=== PATIENT | female | born 1995 | race Caucasian/White ===

== ENCOUNTER 2021-03-22 06:18 | Day surgery (SDC) | payer BC ==
[~2021-03-22] VITALS: Ht 172.7 cm; Wt 81.7 kg
[2021-03-22] MEDS ORDERED: ALLEGRA ALLERG180 MG PO (06:37)
--- NOTE | 2021-03-22 12:31 | NUR ---
03/22/21 1231 Antonieta Woodruff 1225: PT ARRIVES TO PACU FOR RECOVERY VIA STRETCHER. REACTIVE TO TACTILE STIMULI BUT UNABLE TO FOLLOW COMMANDS. VSS, RESP EVEN AND UNLABORED. OPA IN PLACE. O2 SAT STABLE >98% ON 8L VIA FACEMASK 1227: PT WAKES AND BEGINS TO GRAB AT FACE. OPENS MOUTH ON COMMAND AND OPA REMOVED. 1228: CONTS TO REACH FOR FACE. OXYGEN TURNED OFF AND MASK REMOVED. PT MAINTAINSO2 SAT >98% ON RA. 1230: VS REMAIN STABLE. PT ANSWERS QUESTIONS APPROPRIATELY. DENIES PAIN ANDNAUSEA. RESP EVEN AND UNLABORED. O2 SAT >98% ON RA
--- NOTE | 2021-03-22 13:16 | NUR ---
REPORT RECEIVED FROM CHARGE NURSE AND PT CARE RESUMED. PT. IS ALERT AND ORIENTED. SHE REPORTS PAIN IS TOLERABLE AND MILD. LAP SITE DRESSINGS X3 ARE CDI. HR IS 107. PT IS TOLERATING JELLO AND SIPS OF WATER. BOWEL TONES HYPOACTIVE AND LUNGS CLEAR THROUGHOUT. DISCUSSED GOALS TO DISCHARGE, SAFETY AND PAIN MANAGEMENT. PT LEFT RESTING WITH CALL LIGHT IN REACH.
--- NOTE | 2021-03-22 13:22 | HP ---
[facility] [address] [place] [place], [place] [address] Signed ADMISSION DATE: 03/22/2021 CHIEF COMPLAINT: Left pelvic pain. HISTORY: The patient is a 25-year-old, G0, unknown LMP with Mirena IUD inserted on 01/07/2021 with bleeding off and on since then, complained of sudden onset of left-sided pelvic pain about 05:00 a.m. this morning. This was uilnzyrq-dy-smqdbi, and the patient also began having nausea and vomiting. She denies any fever or dysuria, had no previous symptoms like this. Because of the pain, she came to the emergency room and was found to have probable torsion of the left ovary. PAST MEDICAL HISTORY: Medical: Allergies. Surgery: None. CURRENT MEDICATIONS: Rosa and Advil. ALLERGIES: Amoxicillin and hives. SOCIAL HISTORY: Occasional alcohol. No smoking. No drinking. REVIEW OF SYSTEMS: Unremarkable. PHYSICAL EXAMINATION: GENERAL: The patient in mild distress with intermittent increases in pelvic pain. She is afebrile. VITAL SIGNS: Stable. HEART: Regular rate and rhythm. LUNGS: Clear. ABDOMEN: Soft, nondistended, tender in the left lower quadrant. PELVIC: Deferred. EXTREMITIES: Full range of motion. RADIOGRAPHIC DATA: Pelvic ultrasound showed Electronically Signed By: SHOAIB MIXON MD 03/22/21 1322 PATIENT NAME: JENNI GILLIAM HISTORY AND PHYSICAL DATE OF : [birth year] REPORT #: [id number] PHYSICIAN: SHOAIB MIXON MD PCP: BRANDEN AWAN NP REPORT IS CONFIDENTIAL AND NOT TO BE RELEASED WITHOUT AUTHORIZATION [facility] [address] [place], [place] [address] Signed normal uterus. Left ovary is enlarged at 7 x 8.2 x 11.9 cm with two complex, probably hemorrhagic cysts present, 64 x 56 x 67 mm and 59 x 53 x 66 mm. There is no vascularity noted within the ovary and it was thought to be probable torsion of the left ovary. LABORATORY DATA: WBCs 11.7 and H and H of 13.7 and 41.0. Quantitative hCG less than 0.1. IMPRESSION: Probable torsion of the left ovary. PLAN: The patient has been n.p.o. for over 12 hours except for one sip of coffee. I have discussed the probable diagnosis and recommended diagnostic laparoscopy with probable detorsion of the ovary and possible drainage or excision of cysts. I discussed the possibility of needing removal of the left tube and/or ovary. We discussed the risks including bleeding, infection, and injury to bowel, bladder, and ureter. We discussed the possibility of torsion returning after detorsion. The patient would like to proceed with surgery, so the OR crew and Anesthesia were called. 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 The patient signed consent and all questions were answered. Shoaib Mixon MD MJB/JANETL /[id number] Copies: ~ Electronically Signed By: SHOAIB MIXON MD 03/22/21 1322 PATIENT NAME: JENNI GILLIAM HISTORY AND PHYSICAL DATE OF : [birth year] REPORT #: [id number] PHYSICIAN: SHOAIB MIXON MD PCP: BRANDEN AWAN NP REPORT IS CONFIDENTIAL AND NOT TO BE RELEASED WITHOUT AUTHORIZATION
[2021-03-22] MEDS ORDERED: ADVIL200 M1 PO (14:02)
[2021-03-22] MEDS ORDERED: NASACORT10.8 ML NAS (14:08)
--- NOTE | 2021-03-22 14:08 | NUR ---
MED REC COMPLETE
--- NOTE | 2021-03-22 14:15 | NUR ---
MD UPDATED ABOUT PT. STATUS AND MEETING GOALS FOR DISCHARGE.
--- NOTE | 2021-03-22 14:46 | NUR ---
ALL DISCHARGE INSTRUCTIONS REVIEWED WITH PT AND QUESTIONS ANSWERED. VITALS STABLE, VOIDING WELL, AMBULATING, AND TOLERATING FLUIDS AND FOOD WITHOUT NAUSEA. IV REMOVED WITH CATH. INTACT. PT. LEFT WITH ALL BELONGINGS VIA WHEELCHAIR WITH FIFLOYD AND PHYSICIAN SCRIBE.
--- NOTE | 2021-03-26 07:06 | OR ---
[facility] [address] [place] [address] Signed DATE OF OPERATION: 03/22/2021 SURGEON: Shoaib Mixon MD Patient of Dr. Mixon. PREOPERATIVE DIAGNOSES: Pelvic pain, adnexal mass, probable torsion of left ovary. POSTOPERATIVE DIAGNOSES: Large left hemorrhagic ovarian cyst and torsion of the left ovary. PROCEDURE: Laparoscopic left ovarian cystectomy and detorsion of the left ovary. PAPER TWISTER TENDER: Loli Wilson MD. ANESTHESIA: General. ESTIMATED BLOOD LOSS: 50 mL plus additional 200 mL of old blood and clots within the pelvis prior to the surgery. SPECIMEN: Hemorrhagic left ovarian cyst. DRAINS: None. PACKING: None. FINDINGS: Cervix thick, closed. Cervix with IUD string seen. Uterus normal size and shape. There was moderate amount of dark blood and clots within the pelvis. The uterus was normal size and shape. The anterior cul-de-sac free of any adhesions. Posterior cul-de-sac free of any adhesions, but was filled with dark blood. The left fallopian tube was swollen and edematous. The left ovary was enlarged with approximately 10 cm Electronically Signed By: SHOAIB MIXON MD 03/26/21 0706 PATIENT NAME: JENNI GILLIAM OPERATIVE REPORT DATE OF : [birth year] REPORT #: [id number] PHYSICIAN: SHOIAB MIXON MD PCP: SHIRA CORDOVA CANDLE MOLDER HAND REPORT IS CONFIDENTIAL AND NOT TO BE RELEASED WITHOUT AUTHORIZATION [facility] [address] [place], [place] [address] Signed left ovarian hemorrhagic cyst and also with torsion of the ovary. The right tube and ovary were normal. No other masses or adhesions were seen. COMPLICATIONS: None. DESCRIPTION OF PROCEDURE: The patient was brought into the operating room, placed in supine position, and after adequate general anesthesia was obtained, the patient was placed in dorsal lithotomy position, prepped and draped in usual sterile fashion. A Mirza catheter was placed in the bladder and a weighted speculum was placed in the vagina. Cervix was observed and a sponge stick was placed in the vagina and the weighted speculum removed. Attention was then drawn to the abdomen. A small infraumbilical skin incision was made with a scalpel after injecting the area with 0.5% Marcaine with epinephrine. Subcutaneous tissue was dissected with Metzenbaum scissors. The hemostats used to grasp the fascia, which was then elevated, nicked with Metzenbaum scissors and extended in transverse fashion using Metzenbaum scissors. Abdominal musculature and peritoneum were bluntly and sharply opened into the pelvis. Retention stitches of 0 Vicryl suture were placed above and below the incision. An S retractor was placed in the incision. The Hanna cannula and sleeve then entered the abdomen under direct visualization and then the S retractor removed. The balloon was filled with air and the upper sleeve slid down and tightened in place. The retention stitches were attached to the upper sleeve. The trocar removed and the laparoscope with video attachment entered the abdomen under direct visualization. The abdomen was insufflated with carbon dioxide. The above findings were noted. On the left side just below the level of the umbilicus and approximately 10 cm lateral to the midline, the abdominal wall was transilluminated to help avoid any vessels and then skin nicked with a scalpel after injecting the area with 0.5% Marcaine with epinephrine. A bladed 5-mm trocar and sleeve entered the abdomen under direct visualization. The trocar was removed and blunt grasper inserted. The same procedure was carried out on the right side and a second blunt grasper inserted. The above findings were noted and confirmed. The ovary was detorsed and was examined to see if there appeared to be any viable ovary or tube. The tube was quite edematous, but did not appear necrotic. The hemorrhagic ovarian cyst was very friable and large amount of clots present. The ovarian cyst was opened and suction irrigation used to try clean out the clots. At this point, it was decided a larger instrument was needed to help with removing the cysts. On the right side the balloon was deflated, the trocar removed and a Veress needle with expandable sleeve placed through the same incision and fascial Electronically Signed By: SHOAIB MIXON MD 03/26/21 0706 PATIENT NAME: JENNI GILLIAM OPERATIVE REPORT DATE OF : [birth year] REPORT #: [id number] PHYSICIAN: SHOAIB MIXON MD PCP: SHIRA CORDOVA NP REPORT IS CONFIDENTIAL AND NOT TO BE RELEASED WITHOUT AUTHORIZATION [facility] [address] [place], [place] [address] Signed incision. The Veress needle was removed and expandable trocar was placed through the expandable sleeve. The trocar was removed and through this opening the 10 mm Spoonbill forceps could be used. These were used to grasp pieces of the ovary and clot and remove them individually. This was carried out using the LigaSure bipolar forceps to cauterize the edematous portion of the hemorrhagic cyst and the individual pieces placed in the Spoonbill and removed. This was carefully continued, also irrigating and suctioning and picking up any loose pieces of the cyst until reaching viable tissue, which was starting to bleed. When all of the hemorrhagic cyst was removed and the remaining portion of the ovary appeared mostly normal, the raw surfaces were cauterized with monopolar spatula tip and Maryland tip to control any slight bleeding. The entire pelvis was then irrigated, thoroughly suctioned, examined, any clots or other portions of ovary were removed using Spoonbill forceps. When good hemostasis was obtained, the raw ovarian surface was sprayed with Tisseel for further hemostasis and the entire pelvis again carefully examined and noted to have good hemostasis. The left tube was still edematous. The ovary appeared viable and again good hemostasis was noted. The right tube and ovary were both normal. So, at this point, the procedure was terminated. The gas allowed to escape. All sleeves removed and the infraumbilical fascial incision closed using running stitch of 0 Vicryl suture. The 2 retention stitches were tied together for further support. The 3 skin incisions were closed using subcuticular stitches of 3-0 Vicryl suture. The Mirza catheter was removed and the sponge stick removed from the vagina. The patient tolerated the procedure well, went to recovery room in good condition. Sponge, needle, and instrument count correct at the end of the procedure. The portions of the hemorrhagic ovarian cyst were sent to Pathology for identification. MD ERICA Venegas/SANTANA /[id number] cc: Shira Cordova NP Copies: CORDOVA,SHIRA L CANDLE MOLDER HAND Electronically Signed By: SHOAIB MIXON MD 03/26/21 0706 PATIENT NAME: JENNI GILLIAM OPERATIVE REPORT DATE OF : [birth year] REPORT #: [id number] PHYSICIAN: SHOAIB MIXON MD PCP: SHIRA CORDOVA NP REPORT IS CONFIDENTIAL AND NOT TO BE RELEASED WITHOUT AUTHORIZATION [address] [address] Signed ~ Electronically Signed By: SHOAIB MIXON MD 03/26/21 0706 PATIENT NAME: JENNI GILLIAM OPERATIVE REPORT DATE OF : [birth year] REPORT #: [id number] PHYSICIAN: SHOAIB MIXON MD PCP: SHIRA CORDOVA NP REPORT IS CONFIDENTIAL AND NOT TO BE RELEASED WITHOUT AUTHORIZATION
--- NOTE | 2021-03-27 14:18 | PATH ---
[facility] [address] [place], [place] [address] Signed SPECIMEN(S): A LEFT OVARIAN CYST SPECIMEN SOURCE: A. LEFT OVARIAN CYST CLINICAL HISTORY: Pre: Abdominal pain/vomiting, possible torsed ovary. Post: Diagnostic laparoscopy, hemorrhagic ovarian cystectomy and detorsion. FINAL PATHOLOGIC DIAGNOSIS: Ovarian cyst, left, cystectomy: - Fragments of hemorrhagic ovarian tissue with cystic follicles. - No evidence of malignancy. COMMENT: The histologic changes in the ovarian tissue are compatible with the history of ovarian torsion. NAL:cml:C2NR MICROSCOPIC EXAMINATION: Histologic sections of all submitted blocks are examined by light microscopy. These findings, together with the gross examination, support the pathologic diagnosis. GROSS DESCRIPTION: The specimen, labeled "MM," and designated on the requisition "hemorrhagic left ovarian cyst," is received in formalin and consists of multiple fragmented pieces of red-brown soft tissue and clot (7.0 x 6.1 x 2.6 cm in aggregate). Chain Maker Loom Control sections are submitted in cassettes (A1-A3). AC (under the direct supervision of a pathologist) The Gross Description was prepared using a voice recognition system. The report was reviewed for accuracy; however, sound-alike word errors, addition and/or deletions may occur. If there is any question about this report, please contact Client Services. PERFORMING LABORATORY: The technical component was performed by [facility], [address] [place] [id number] ([employer]: Jud Iniguez MD; CLIA# [id number]). [facility], [address] [address] (CLIA# PATIENT NAME: JENNI GILLIAM PATHOLOGY DATE OF : [birth year] REPORT #: [id number] PHYSICIAN: [facility] PCP: BRANDEN AWAN NP REPORT IS CONFIDENTIAL AND NOT TO BE RELEASED WITHOUT AUTHORIZATION [address] [address] Signed [id number]). Diagnostician: Jacinda Briceno MD Pathologist Electronically Signed 03/27/2021 Copies: ~ PATIENT NAME: JENNI GILLIAM PATHOLOGY DATE OF : [birth year] REPORT #: [id number] PHYSICIAN: [facility] PCP: BRANDEN AWAN NP REPORT IS CONFIDENTIAL AND NOT TO BE RELEASED WITHOUT AUTHORIZATION
== END 2021-03-22 14:40 | disposition home or self-care (01) ==
LOC: ED 06:18 → MS 09:54 → DS 09:54 → MS 09:55 → DS 14:40
PROVIDERS: ATTEND General Practice
PROC: 0UB14ZZ Excision of Left Ovary, Percutaneous Endoscopic Approach (ICD-10-PCS; 2021-03-22)
PROC: 0US14ZZ Reposition Left Ovary, Percutaneous Endoscopic Approach (ICD-10-PCS; principal; 2021-03-22 10:00)
DX: N83.512 Torsion of left ovary and ovarian pedicle (principal); N83.202 Unspecified ovarian cyst, left side; E28.2 Polycystic ovarian syndrome; N83.8 Other noninflammatory disorders of ovary, fallopian tube and broad ligament; Z20.822 Contact with and (suspected) exposure to COVID-19; Z97.5 Presence of (intrauterine) contraceptive device; Z88.0 Allergy status to penicillin
CPT/HCPCS: 00840; 76830; 76856; 80053; 81001; 83690; 84702; 84703; 85025; 96374; 96375; 96376; 99285-25; C9803; J0131; J0330; J1100; J1170; J1885; J2001; J2250; J2270; J2405; J2704; J3010; J7030; J7121; U0003

== ENCOUNTER 2023-08-16 07:40 | Inpatient (IN) | payer OTHER ==
[~2023-08-16] VITALS: Ht 172.7 cm; Wt 105.7 kg
[~2023-08-16 07:40] MED LIST: ADVIL200 M1 PO; ALLEGRA ALLERG180 MG PO; NASACORT10.8 ML NAS
--- NOTE | 2023-08-16 09:04 | PR ---
[facility] [address] [facility] [place], [place] [address] Signed Progress Notes IP Datetime Report Generated by CPN: 08/16/2023 09:04 PROGRESS NOTES: [id number] Impression: Reassuring Heart Rate Procedures: Artificial ROM Plan: Continue Present Management VITAL SIGNS: [id number] Vital Signs: Reviewed; Within Normal Limits EXAM: [id number] Dilatation: 5.0 Effacement: 90 Station: -2 MEMBRANES: [id number] Comments: Still pretty comfortable. Will continue with close observation. FETUS A: [id number] FHR Baseline: 120 Variability: Moderate 6-25bpm Accelerations: 15X15 Decelerations: None FHR Category: Category I Presentation: Vertex FETUS B: [id number] Signing Physician: Loli Wilson MD Copies: ~ *Electronically Signed* 08/16/23903 LOLI WILSON MD PATIENT NAME: JENNI CHANG PROGRESS NOTE DATE OF : [birth year] PHYSICIAN: LOLI WILSON MD RPT #: [id number] REPORT IS CONFIDENTIAL AND NOT TO BE RELEASED WITHOUT AUTHORIZATION
[2023-08-16 09:05] LABS: HEMATOCRIT 36.7 % (35.0-50.0); HEMOGLOBIN 11.9 g/dL (12.0-18.0); MCH 26.4 (27-36); MCHC 32.5 g/dl (30-36); MCV 81.2 fl (81-99); RBC 4.52 M/ul (4.3-5.7); RDW 15.1 (10.5-15.0)
[2023-08-16 09:55] LABS: ABO B; ANTIBODY SCREEN NEGATIVE; RH POSITIVE
[2023-08-16 09:59] LABS: AMPHETAMINES, URINE NEGATIVE (NEGATIVE); BARBITURATES, URINE NEGATIVE (NEGATIVE); BENZODIAZEPINE, URINE NEGATIVE (NEGATIVE); BUPRENORPHINE, URINE NEGATIVE (NEGATIVE); CANNABINOID, URINE NEGATIVE (NEGATIVE); COCAINE, URINE NEGATIVE (NEGATIVE); ECSTASY, URINE POSITIVE (NEGATIVE); FENTANYL, URINE NEGATIVE (NEGATIVE); METHADONE, URINE NEGATIVE (NEGATIVE); OPIATES, URINE NEGATIVE (NEGATIVE); OXYCODONE, URINE NEGATIVE (NEGATIVE); PHENCYCLIDINE, URINE NEGATIVE (NEGATIVE)
[2023-08-17 05:24] LABS: HEMOGLOBIN 8.8 g/dL (12.0-18.0); MCH 26.8 (27-36); MCHC 32.6 g/dl (30-36); MCV 82.4 fl (81-99); RBC 3.28 M/ul (4.3-5.7); RDW 15.2 (10.5-15.0)
--- NOTE | 2023-08-17 09:49 | PR ---
[facility] [address] [facility] [place], [place] [address] Signed PP Progress Notes Datetime Report Generated by CPN: 08/17/2023 09:49 SUBJECTIVE: [id number] Pain: Within Normal Limits Vital Signs: [id number] Vital Signs: Reviewed; Within Normal Limits Cardiovascular: Not Done Respiratory: Not Done Abdomen/Uterus: Abnormal Lochia: Normal Vulva/Perineum: Not Done Breasts: Not Done CVA Tenderness: Not Done Extremities: Normal Incision: Not Applicable Progress: Normal Exam Comments: Fundus firm, NT @ U-1. H/H 8.8/27, WBC 10.5, WBC 157k IMPRESSION/PLAN/PROCEDURES: [id number] Impression: Normal Progression Other Impression: anemia Other Plans: iron infusion Other Procedures: iron infusion Progress Notes: Doing well and tolerating her anemia so far. She did have significant blood loss from her lacerations and pp atony. I feel an iron infusion would be helpful and she is amenable to this. Probable discharge tomorrow. Signing Physician: Loli Wilson MD Copies: ~ *Electronically Signed* 08/17/23 0949 LOLI WILSON MD PATIENT NAME: JENNI CHANG PROGRESS NOTE DATE OF : [birth year] PHYSICIAN: LOLI WILSON MD RPT #: [id number] REPORT IS CONFIDENTIAL AND NOT TO BE RELEASED WITHOUT AUTHORIZATION
--- NOTE | 2023-08-18 08:12 | PR ---
[facility] [address] [facility] [place], [place] [address] Signed PP Progress Notes Datetime Report Generated by CPN: 08/18/2023 08:12 SUBJECTIVE: [id number] Pain: Within Normal Limits Vital Signs: [id number] Vital Signs: Reviewed; Within Normal Limits Cardiovascular: Not Done Respiratory: Not Done Abdomen/Uterus: Abnormal Lochia: Normal Vulva/Perineum: Not Done Breasts: Not Done CVA Tenderness: Not Done Extremities: Normal Incision: Not Applicable Progress: Abnormal Exam Comments: Fundus firm, NT @ U-2. IMPRESSION/PLAN/PROCEDURES: [id number] Impression: Normal Progression; Difficulties Other Impression: anemia Plan: Consult; Discharge Other Plans: iron infusion Procedures: None Other Procedures: iron infusion Progress Notes: Doing well overall but still some issues with breast feeding. Will arrange for consult today with discharge. Signing Physician: Loli Wilson MD Copies: ~ *Electronically Signed* 08/18/23811 LOLI WILSON MD PATIENT NAME: JENNI CHANG PROGRESS NOTE DATE OF : [birth year] PHYSICIAN: LOLI WILSON MD RPT #: [id number] REPORT IS CONFIDENTIAL AND NOT TO BE RELEASED WITHOUT AUTHORIZATION
== END 2023-08-18 12:47 | disposition home or self-care (01) | DRG 806 ==
LOC: FBCO 07:40 → FBC 07:55
PROVIDERS: ADMIT Obstetrics & Gynecology; ATTEND Obstetrics & Gynecology
PROC: 10E0XZZ Delivery of Products of Conception, External Approach (ICD-10-PCS; principal; 2023-08-16)
PROC: 0KQM0ZZ Repair Perineum Muscle, Open Approach (ICD-10-PCS; 2023-08-16)
PROC: 3E0R3BZ Introduction of Anesthetic Agent into Spinal Canal, Percutaneous Approach (ICD-10-PCS; 2023-08-16)
PROC: 00HU33Z Insertion of Infusion Device into Spinal Canal, Percutaneous Approach (ICD-10-PCS; 2023-08-16)
PROC: 10907ZC Drainage of Amniotic Fluid, Therapeutic from Products of Conception, Via Natural or Artificial Opening (ICD-10-PCS; 2023-08-16)
DX: O48.0 Post-term pregnancy (principal); D62 Acute posthemorrhagic anemia; Z37.0 Single live birth; O76 Abnormality in fetal heart rate and rhythm complicating labor and delivery; O77.0 Labor and delivery complicated by meconium in amniotic fluid; O70.1 Second degree perineal laceration during delivery; O90.81 Anemia of the puerperium; O62.2 Other uterine inertia; Z3A.40 40 weeks gestation of pregnancy
CPT/HCPCS: 01960; 36415; 80307; 85027; 86850; 86900; 86901; A9270; J2001; J2590; J2795; J7121; Q0138